=== PATIENT | female | born 1990 | race Caucasian/White ===

== ENCOUNTER → 2016-12-15 | Outpatient (CLI) | payer OTHER ==
--- NOTE | 2016-12-16 13:51 | EEG PRO FEE REPORT ---
EEG INTERPRETATION PATIENT NAME: CORKY ARENAS ROOM#: ORDER#: [id number] DATE OF STUDY: 12/15/2016 : 1990 REFERRING MD: MICHELA BARCENAS M.D. DIAGNOSIS: Dizziness/Giddiness REPORT The background activity consists of 8 Hz alpha of medium voltage. No clear focal slowing, amplitude asymmetry, or epileptiform discharges are noted. In the video portion of the recording was unremarkable with no abnormal events being seen. IMPRESSION Normal EEG INTERPRETING PHYSICIAN: HÉCTOR STERN M.D. /: MTEFFT TT: 1347 ID: [id number] /: [id number] TD: [id number] JOB: [id number] cc:Freeman GUTIERREZ M.D. >
== END ==
LOC: NEURO 08:25
PROVIDERS: ATTEND Pediatrics
DX: R42 Dizziness and giddiness (principal); Q40.8 Other specified congenital malformations of upper alimentary tract
CPT/HCPCS: 95819